=== PATIENT | female | born 1965 | race Caucasian/White ===

== ENCOUNTER 2023-11-08 17:15 | Emergency (ER) | payer MEDICAID, SELFPAY ==
[2023-11-08 17:23] VITALS: BP 153/83; BP 160/100; PULSE 80; PULSE 82; RESP 16; TEMP 36.4; O2SAT 98; O2SAT 99; BMI 46.1
--- NOTE | 2023-11-08 17:24 | ED_ITS ---
HPI - Psych General Chief Complaint: Behavioral Concerns Stated Complaint: From , refusing to take meds or eat for days Time Seen by Provider: 11/08/23 17:23 Source: patient and EMS Mode of arrival: EMS Limitations: no limitations History of Present Illness ED Provider: Dr. Nina Toledo HPI Narrative: Patient comes to the emergency room from [facility]. According to Susanne Gonsalez, the patient is refusing to take her meds and not eating and therefore they sent her to the emergency room. On arrival to the ED, patient states that she has told multiple times to the staff in [facility] that she can not stand the side effects of her medications, they make her feel very nauseous. Patient states that she is willing to take medications but not the ones that she is currently taking due to the side effects. Also, patient has told him that she does not like the foods that Susanne Gonsalez gives her. Therefore she is refusing to eat. Patient states that she is very hungry and would like to have something to eat Related Data Allergies Allergy/AdvReac Type Severity Reaction Status Date / Time cefuroxime [From Ceftin] Allergy Hives Verified 11/08/23 17:25 Review of Systems 2 Review of Systems: Constitutional : No Weight loss, No Fever, No Chills, No Night Sweats, No Fatigue, No Malaise ENT/Mouth : No Hearing loss, No Ear Pain, No Nasal Congestion, No Sinus Pain, No Hoarseness, No sore throat, No Rhinorrhea, No Swallowing Difficulty Eyes: No Eye Pain, No Swelling, No Redness, No Foreign Body, No Discharge, No Vision Changes Cardiovascular : No Chest Pain, No SOB, No Dyspnea on Exertion, No Orthopnea, No Edema, No Palpitations Respiratory : No Cough, No Sputum, No Wheezing, No Smoke Exposure, No Dyspnea Gastrointestinal : No Nausea, No Vomiting, No Diarrhea, No Constipation, No abdominal Pain, No Hematochezia, No Melena Genitourinary : no irregular bleeding, No Dysuria, No Urinary Frequency, No Hematuria, No Urinary Incontinence, No Urgency, No Flank Pain, No Urinary Flow Changes, No Hesitancy Musculoskeletal : No joint pain, No Myalgias, No Joint Swelling Skin : No Skin Lesions, No rash Neuro : No Weakness, No Numbness, No Paresthesias, No Loss of Consciousness, No Dizziness, No Headache Psych : Denies SI or HI Heme/Lymph: No Bruising, No Bleeding,No Lymphadenopathy Endocrine : No Polyuria, No Polydipsia, No Temperature Intolerance [facility] Past Medical History Medical History (Updated 11/08/23 @ 21:53 by Nina Toledo MD) Delusions Social History Social History Smoked in Last 30 Days: No Use of substances other than those prescribed or required for medical reasons: No Advance Directives: Yes Advance Directives Information Provided: No Advance Directives on File: No Physical Exam 2 Vital Signs: Vital Signs: Last Vital Signs Temp 98.2 F 11/08/23 19:45 Pulse 91 11/08/23 19:45 Resp 16 11/08/23 19:45 BP 135/70 11/08/23 21:27 Pulse Ox 96 11/08/23 19:45 O2 Del Method Room Air 11/08/23 19:45 BMI result Body Mass Index 46.1 Const: Other: Appearance: Alert. Oriented X3. No acute distress. Eyes: Pupils equal, round and reactive to light. ENT: Pharynx normal. Neck: Normal inspection. Neck supple. No lymph nodes noted. No crepitus CVS: Normal heart rate and rhythm. Pulses normal. Normal S1 and S2 Respiratory: No respiratory distress. Breath sounds normal. No Wheezing. No rales Abdomen: Soft and nontender. No rigidity. No distention. Skin: Skin warm and dry. Normal skin color. Normal skin turgor. Extremities: No lower extremity edema. No Lacerations. No Rash Neuro: Oriented X 3. No motor deficit. No sensory deficit. Moving all extremities. No slurred speech. CN 2 through 12 grossly intact Psych: calm, cooperative, normal affect Course Course Course Narrative: -patient coming from [facility], currently being treated for delusional thinking, responding to internal stimuli and suicide attempt -patient here for medication noncompliance and not eating . Although, here in the ED, patient is eating because she likes our food -we will obtain a care team consult, patient may need a psychiatric consult as well to change some of her medications -all of patient's labs pending -patient is on a one-to-one Medical Decision Making Medical Decision Making MDM Narrative: My interpretation of labs, normal hematology, no significant abnormality in chemistry -urinalysis pending -psych consult for medication changes pending -patient ate here in the ED. -care team evaluated the patient, no further intervention needed. -patient came in from psychiatric facility, per care team, they can change her medications Differential Diagnosis Differential Diagnoses: The differential diagnosis associated with the presentation includes (Anxiety, depression, medication noncompliance) Admission/Observation Consideration of admission/observation: Escalation of care including admission/observation considered (Patient is under physician observation waiting for her consult) Lab Data MDM Lab Attestation statement: I reviewed the patient's lab results. 11/08/23 17:38 11/08/23 17:38 Labs: Lab Results 11/08/23 11/08/23 Range/Units 17:38 19:44 WBC 9.5 (4.8-10.8) X10*3/uL RBC 4.46 (4.20-5.50) X10*6/uL Hgb 13.3 (12.0-16.0) g/dl Hct 37.7 (37.0-47.0) % MCV 84.5 (80.0-98.0) fL MCH 29.8 (27.0-33.0) pg MCHC 35.3 H (31.0-35.0) g/dl RDW 13.0 (11.0-16.0) % Plt Count 310 (160-400) X10*3/uL MPV 9.5 (9.4-12.3) fL Immature Gran % (Auto) 0.3 (0.0-0.4) % Neut % (Auto) 61.3 (45-73) % Lymph % (Auto) 27.9 (20-40) % [place] % (Auto) 8.0 (2-11) % Eos % (Auto) 1.9 (0-4) % Baso % (Auto) 0.6 (0-2) % Lymph # (Auto) 2.7 (1.2-4.9) X10*3/uL [place] # (Auto) 0.8 (0.1-1.2) X10*3/uL Eos # (Auto) 0.2 (0.0-0.4) X10*3/uL Baso # (Auto) 0.1 (0.0-0.2) X10*3/uL Abs Immat Gran (auto) 0.03 (0.00-0.03) X10*3/uL Absolute Neuts (auto) 5.8 (2.0-8.3) x10*3/uL Absolute Nucleated RBC 0.000 (0.0-0.012) X10*3/uL Nucleated RBC % (auto) 0.0 (0.0-0.2) /100WBC Sodium 138 (135-145) mmol/L Potassium 4.0 (3.3-5.1) mmol/L Chloride 105 (96-108) mmol/L Carbon Dioxide 20 L (22-29) mmol/L Anion Gap 17 (12-20) BUN 11 (9-16) mg/dL Creatinine 0.78 (0.5-1.4) mg/dL Estim Creat Clear Calc 90.5 Estimated GFR > 60 Random Glucose 89 (60-115) mg/dL Calcium 10.4 H (8.4-10.2) mg/dL Total Bilirubin 0.7 (0.0-1.0) mg/dL Direct Bilirubin 0.2 (0.0-0.5) mg/dL AST 22 (5-31) U/L ALT 35 H (0-31) U/L Alkaline Phosphatase 148 H (39-117) U/L Total Protein 8.2 H (6.5-8.0) g/dL Albumin 4.5 (3.5-5.0) g/dL Urine Color Yellow Urine Appearance Cloudy Urine pH 5.5 (5.0-9.0) Ur Specific [place] 1.010 (1.005-1.025) Urine Protein Negative (Neg-Trace) mg/dL Urine Glucose (UA) Negative (Negative) mg/dL Urine Ketones 15 (Negative) mg/dL Urine Blood Negative (Negative) Urine Nitrite Negative (Negative) Ur Leukocyte Esterase Trace H (Negative) Urine RBC 0-2 (0-2) /HPF Urine WBC 0-5 (0-5) /HPF Ur Squamous Epith Cells 11-20 (0-2) /HPF Urine Bacteria 1+ (None Seen) Hyaline Casts 3-5 (0-2) /LPF Urine Opiates Screen Not Detected (Not Detect) Ur Buprenorphine Scrn Not Detected (Not Detect) ng/mL Ur Oxycodone Screen Not Detected (Not Detect) ng/mL Urine Methadone Screen Not Detected (Not Detect) ng/mL Urine Fentanyl Screen Not Detected (Not Detect) Ur Barbiturates Screen Not Detected (Not Detect) Ur Phencyclidine Scrn Not Detected (Not Detect) Ur Amphetamines Screen Not Detected (Not Detect) U Benzodiazepines Scrn Not Detected (Not Detect) Urine Cocaine Screen Not Detected (Not Detect) U Marijuana (THC) Screen Not Detected (Not Detect) Critical Care Time Critical Care Time Critical Care Time: Yes Total Critical Care Time: 30 Attestation: I have personally provided critical care time. Time includes review of lab data, radiology results, discussion with consultants, and monitoring for potential decompensation. Intervention performed as documented. Discharge Plan Discharge Clinical Impression: Noncompliance with medications, Drug side effects Patient Disposition: Xfer Other Transfer Details: [facility] Instructions: Adverse Drug Reaction (ED) Additional Instructions: Patient ate here in the emergency room. Patient is not eating at [facility] because she does not like the food there. Patient is willing to take medications. However, she is experiencing side effects, severe nausea with the med she is currently taking. Psychiatry at [facility] can change her medications as needed. Print Language: Qatari
[2023-11-08 17:43] LABS: MANUAL DIFF FLAG NO
[2023-11-08 17:44] LABS: Basophils Absolute Auto 0.1 X10*3/uL (0.0-0.2); Basophils Percent Auto 0.6 % (0-2); Eosinophils Absolute Auto 0.2 X10*3/uL (0.0-0.4); Eosinophils Percent Auto 1.9 % (0-4); Hematocrit 37.7 % (37.0-47.0); Hemoglobin 13.3 g/dl (12.0-16.0); Imm Gran Abs Auto 0.03 X10*3/uL (0.00-0.03); Imm Gran Pct Auto 0.3 % (0.0-0.4); Lymphocytes Absolute Auto 2.7 X10*3/uL (1.2-4.9); Lymphocytes Percent Auto 27.9 % (20-40); Mean Corpuscular HGB Conc 35.3 g/dl (31.0-35.0); Mean Corpuscular Hemoglobin 29.8 pg (27.0-33.0); Mean Corpuscular Volume 84.5 fL (80.0-98.0); Mean Platelet Volume 9.5 fL (9.4-12.3); Monocytes Absolute Auto 0.8 X10*3/uL (0.1-1.2); Neutrophils Absolute Auto 5.8 x10*3/uL (2.0-8.3); Neutrophils Percent Auto 61.3 % (45-73); Platelet Count 310 X10*3/uL (160-400); Red Blood Count 4.46 X10*6/uL (4.20-5.50); White Blood Count 9.5 X10*3/uL (4.8-10.8)
[2023-11-08 17:57] LABS: Alanine Aminotransferase 35 U/L (0-31); Albumin Level 4.5 g/dL (3.5-5.0); Alkaline Phosphatase 148 U/L (39-117); Anion Gap 17 (12-20); Aspartate Amino Transferase 22 U/L (5-31); Bilirubin Direct 0.2 mg/dL (0.0-0.5); Bilirubin Total 0.7 mg/dL (0.0-1.0); Blood Urea Nitrogen 11 mg/dL (9-16); Calcium 10.4 mg/dL (8.4-10.2); Carbon Dioxide 20 mmol/L (22-29); Chloride 105 mmol/L (96-108); Creatinine Clr Calc Pharmacy 90.5; Estimated Glomerular Filt Rate > 60; Glucose Random 89 mg/dL (60-115); Sodium 138 mmol/L (135-145); Total Protein 8.2 g/dL (6.5-8.0)
[2023-11-08 19:45] VITALS: BP 167/82; PULSE 91; RESP 16; TEMP 36.8; O2SAT 96
--- NOTE | 2023-11-08 19:45 | MHC.EDTECH ---
Patient ate 2 sandwiches ,2 puddings and drank 600 ml georgette diana ,urine sample collected and sent to lab ,vitals taken .
[2023-11-08 19:50] LABS: Appearance Urine Cloudy; Color Urine Yellow; Glucose Urine UA Negative (Negative); Leukocyte Esterase Urine Trace (Negative); Nitrite Urine Negative (Negative); PH 5.5 (5.0-9.0); UMIC TRIGGER UACC YES; Urine Blood Negative (Negative); Urine Ketones 15 mg/dL (Negative); Urine Protein Negative (Neg-Trace)
[2023-11-08 19:55] LABS: Bacteria Urine 1+ (None Seen); RBC Urine 0-2 /HPF (0-2); WBC Urine 0-5 /HPF (0-5)
[2023-11-08 19:59] LABS: Amphetamine Screen Urine Not Detected (Not Detect); Barbiturates, Urine Not Detected (Not Detect); Benzodiazepines Screen Urine Not Detected (Not Detect); Buprenorphine Scr Not Detected (Not Detect); Cannabinoid Screen Urine Not Detected (Not Detect); Cocaine Screen Urine Not Detected (Not Detect); Fentanyl, urine Not Detected (Not Detect); Methadone Screen, Urine Not Detected (Not Detect); Opiate Screen Urine Not Detected (Not Detect); Oxycodone Screen Urine Not Detected (Not Detect); Phencyclidine Screen Urine Not Detected (Not Detect)
--- NOTE | 2023-11-08 20:59 | PC.NURSE ---
Addendum entered by Chiquis Meza 11/08/23 21:41: Per Jewels with CARE team pt should have medications adjusted per [facility] medical staff and all set to go back to facility. Original Note: Report to Dom at [facility]. Bridge Painter to book [facility] transport.
[2023-11-08 21:27] VITALS: BP 135/70
== END 2023-11-08 23:21 | disposition home or self-care (01) ==
PROVIDERS: Emergency Provider Emergency Medicine; PCP Internal Medicine
DX: R11.0 Nausea (principal); Z91.148 Patient's other noncompliance with medication regimen for other reason; Z79.899 Other long term (current) drug therapy
CPT/HCPCS: 36415; 80048; 80076; 80307; 81001; 85025; 99284; S9485

== ENCOUNTER 2023-11-25 14:41 | Emergency (ER) | payer MEDICAID, SELFPAY ==
--- NOTE | ~2023-11-25 | CT_ITS ---
EXAMINATION: CT HEAD WITHOUT CONTRAST CLINICAL INFORMATION: Change in mental status. COMPARISON: None available. TECHNIQUE: Contiguous axial imaging was performed from the skull base to vertex without intravenous administration of contrast. This CT examination was performed using dose optimization techniques as appropriate, variously including the following: *Automated exposure control *Adjustment of mA and/or kV according to patient size (this includes techniques or standardized protocols for targeted exams where dose is matched to indication/reason for exam; i.e. extremities or head) *Use of iterative reconstruction technique DLP: 651 mGy-cm FINDINGS: There is no evidence of acute intracranial hemorrhage or territorial infarction. No mass effect or midline shift is seen. Galvan to white matter differentiation is preserved. There is prominence of the bifrontal CSF spaces. No hydrocephalus. The osseous structures and soft tissues are intact. Patchy opacification of the anterior ethmoid air cells. Mucosal thickening of the left maxillary sinus. Mastoid air cells are clear. CT/CT head/brain wo IV con IMPRESSION: No acute intracranial abnormality. Prominence of the bifrontal CSF spaces. Mild chronic sinus disease.
[2023-11-25 14:43] VITALS: BP 160/80; BP 167/67; PULSE 60; PULSE 89; RESP 18; TEMP 37.3; O2SAT 100; O2SAT 98; BMI 37.7
[2023-11-25 14:58] LABS: Glucose, Whole Blood 80 mg/dL (60-115)
--- NOTE | 2023-11-25 15:27 | ECG_ITS ---
Test Reason : AMS Blood Pressure : / mmHG Vent. Rate : 062 BPM Atrial Rate : 062 BPM P-R Int : 160 ms QRS Dur : 072 ms QT Int : 404 ms P-R-T Axes : 011 017 002 degrees QTc Int : 410 ms Normal sinus rhythm Normal ECG No previous ECGs available Referred By: Nan Villela Electronically Signed By:SANDHYA VILLALBA
[2023-11-25] MEDS: LORazepam 2 MG/ML VIAL 1 MG IVPUSH (15:59)
[2023-11-25 16:02] VITALS: BP 160/76; PULSE 62; RESP 22; TEMP 36.4; O2SAT 98
[2023-11-25 16:02] LABS: MANUAL DIFF FLAG NO
--- NOTE | 2023-11-25 16:03 | PC.NURSE ---
pt refusing to respond to verbal stimulus by opening eyes or speaking, however patient will move limbs upon this nurse asking, pt eyes closed, iv inserted to lt ac, labs drawn, pt medicated per order, ekg performed, csm consultant sinus rk, vss, 1:1 sitter at bedside, will continue with plan of care
[2023-11-25 16:05] LABS: VBG Base Excess -0.9 mmol/L; VBG HCO3 20 mmol/L (22-26); VBG pCO2 24 mmHg; VBG pH 7.52 (7.32-7.43); VBG pO2 61 mmHg
--- NOTE | 2023-11-25 16:06 | ED_ITS ---
HPI - Altered Mental Status General Chief Complaint: Altered Mental Status Stated Complaint: FAILURE TO THRIVE FROM [place] Time Seen by Provider: 11/25/23 15:38 Source: EMS and old records reviewed Mode of arrival: EMS Limitations: altered mental status History of Present Illness ED Provider: HAROON HPI narrative: 58 yo female with PMH of HTN, mood disorder who was admitted to [facility] from [facility] for delusions 11/03 she reportedly has not been responding to staff and no PO intake. Patient provides no history and I have no idea how long this has been going on for. Patient holding eyes shut will not allow harms to fall on face, withdraws from painful stimuli. MD complaint: decreased responsiveness Onset (ago): unknown Timing confirmed by: caregiver Severity: moderate Consistency of symptoms: constant Context: history of similar presentation Associated symptoms: denies other symptoms Related Data Allergies Allergy/AdvReac Type Severity Reaction Status Date / Time cefuroxime [From Ceftin] Allergy Hives Verified 11/25/23 14:48 Review of Systems 2 Review of Systems: ROS unable to be obtained due to altered mental status PMFSH Past Medical History Attestation statement: The following information was validated with the patient. Source: old records reviewed Medical History Delusions Social History Social History (Updated 11/25/23 @ 16:17 by Nan Villela DO) Patient Tobacco Use Status: Tobacco use Unknown Physical Exam ED Vital Signs: Vital Signs - 24 hr 11/25/23 14:43 11/25/23 16:02 Temperature 99.1 F 97.6 F Pulse Rate 60 62 Respiratory Rate 18 22 H Blood Pressure 167/67 H 160/76 H Pulse Oximetry 100 98 Oxygen Delivery Method Room Air Room Air BMI result Body Mass Index 37.7 Appearance: somnolent withdraws to painful stimuli will now allow arm to fall on face, No acute distress. Eyes: Pupils equal, round and reactive to light. fights me to open her eyes ENT: Pharynx normal. Neck: Normal inspection. Neck supple. CVS: Normal heart rate and rhythm. Pulses normal. Respiratory: No respiratory distress. Breath sounds normal. Abdomen: Soft and nontender. Skin: Skin warm and dry. Normal skin color. Normal skin turgor. Extremities: No lower extremity edema. No calf ttp Neuro: nonverbal but fights eyes to open no clonus will not allow her arms or hands to fall on her face, localizes to pain Medications Administered Discontinued Medications Generic Name Dose Route Start Last Admin Trade Name Sheila PRN Reason Stop Dose Admin Lorazepam 1 mg 11/25/23 15:41 11/25/23 15:59 Lorazepam 2 Mg/Ml Vial IVPUSH 11/25/23 15:42 1 mg STAT STA Administration Medical Decision Making Medical Decision Making [facility] Narrative: 58 yo female with PMH of HTN, mood disorder who is now nonverbal not eating or drinking not speaking her neuro exam seems very intentional at this time - will obtain basic labs, EKG, CT head, UA - IV ativan in case of catatonia and rudy effect. work up pending, this could also be malingering/conversion disorder Differential Diagnosis Differential Diagnoses: The differential diagnosis associated with the presentation includes encephalopathy, catatonia, behavioral Admission/Observation Consideration of admission/observation: Escalation of care including admission/observation considered signed out to Osvaldo pending workup Lab Data [facility] Lab Attestation statement: I reviewed the patient's lab results. 11/25/23 15:56 11/25/23 15:56 Labs: Lab Results 11/25/23 11/25/23 11/25/23 Range/Units 14:48 15:56 15:57 WBC 7.6 (4.8-10.8) X10*3/uL RBC 4.48 (4.20-5.50) X10*6/uL Hgb 13.4 (12.0-16.0) g/dl Hct 37.0 (37.0-47.0) % MCV 82.6 (80.0-98.0) fL MCH 29.9 (27.0-33.0) pg MCHC 36.2 H (31.0-35.0) g/dl RDW 13.9 (11.0-16.0) % Plt Count 279 (160-400) X10*3/uL MPV 10.3 (9.4-12.3) fL Immature Gran % (Auto) 0.4 (0.0-0.4) % Neut % (Auto) 64.8 (45-73) % Lymph % (Auto) 25.7 (20-40) % [place] % (Auto) 6.9 (2-11) % Eos % (Auto) 1.7 (0-4) % Baso % (Auto) 0.5 (0-2) % Lymph # (Auto) 2.0 (1.2-4.9) X10*3/uL [place] # (Auto) 0.5 (0.1-1.2) X10*3/uL Eos # (Auto) 0.1 (0.0-0.4) X10*3/uL Baso # (Auto) 0.0 (0.0-0.2) X10*3/uL Abs Immat Gran (auto) 0.03 (0.00-0.03) X10*3/uL Absolute Neuts (auto) 5.0 (2.0-8.3) x10*3/uL Absolute Nucleated RBC 0.000 (0.0-0.012) X10*3/uL Nucleated RBC % (auto) 0.0 (0.0-0.2) /100WBC VBG pH 7.52 H (7.32-7.43) VBG pCO2 24 mmHg VBG pO2 61 mmHg VBG HCO3 20 L (22-26) mmol/L VBG O2 Saturation 92.0 % VBG Base Excess -0.9 mmol/L POC Glucose 80 (60-115) mg/dL Independent Interpretation I performed an independent interpretation of an: EKG Interpretation: Rate: 62 Rhythm: NSR [place]: normal Normal P waves. Normal TERESA. Normal QRS complex. ST T wave : normal no GRACIELA qTC: 410 prior studies: no acute ischemia The study has been interpreted contemporaneously by me. . Independent Historian Clinical information obtained from an independent historian. History obtained from or confirmed by: EMS External Record Review External record reviewed: Outpatient record Discharge Plan Discharge Clinical Impression: Weakness Patient Disposition: Still a Patient Print Language: Nepalese
[2023-11-25 16:09] LABS: Basophils Percent Auto 0.5 % (0-2); Eosinophils Absolute Auto 0.1 X10*3/uL (0.0-0.4); Eosinophils Percent Auto 1.7 % (0-4); Hemoglobin 13.4 g/dl (12.0-16.0); Imm Gran Abs Auto 0.03 X10*3/uL (0.00-0.03); Imm Gran Pct Auto 0.4 % (0.0-0.4); Lymphocytes Percent Auto 25.7 % (20-40); Mean Corpuscular HGB Conc 36.2 g/dl (31.0-35.0); Mean Corpuscular Hemoglobin 29.9 pg (27.0-33.0); Mean Corpuscular Volume 82.6 fL (80.0-98.0); Mean Platelet Volume 10.3 fL (9.4-12.3); Monocytes Absolute Auto 0.5 X10*3/uL (0.1-1.2); Monocytes Percent Auto 6.9 % (2-11); Neutrophils Percent Auto 64.8 % (45-73); Platelet Count 279 X10*3/uL (160-400); Red Blood Count 4.48 X10*6/uL (4.20-5.50); Red Cell Distribution Width 13.9 % (11.0-16.0); White Blood Count 7.6 X10*3/uL (4.8-10.8)
[2023-11-25 16:11] LABS: Venous Blood Gas Refer to POC result
[2023-11-25 16:12] LABS: Ammonia 18 umol/L (13-55)
[2023-11-25] MEDS: 0.9 % Sodium Chloride 500 ML IV (16:13)
--- NOTE | 2023-11-25 16:15 | PC.NURSE ---
ivf started per order
[2023-11-25 16:27] LABS: Alanine Aminotransferase 22 U/L (0-31); Albumin Level 3.9 g/dL (3.5-5.0); Alkaline Phosphatase 124 U/L (39-117); Anion Gap 14 (12-20); Aspartate Amino Transferase 17 U/L (5-31); Bilirubin Direct 0.2 mg/dL (0.0-0.5); Bilirubin Total 0.5 mg/dL (0.0-1.0); Blood Urea Nitrogen 8 mg/dL (9-16); Calcium 10.1 mg/dL (8.4-10.2); Carbon Dioxide 19 mmol/L (22-29); Chloride 107 mmol/L (96-108); Creatinine Clr Calc Pharmacy 116.5; Estimated Glomerular Filt Rate > 60; Glucose Random 84 mg/dL (60-115); Potassium 3.8 mmol/L (3.3-5.1); Sodium 136 mmol/L (135-145); Total Protein 7.1 g/dL (6.5-8.0)
[2023-11-25 16:40] LABS: TSH reflex Free T4 1.69 uIU/mL (0.32-4.0)
--- NOTE | 2023-11-25 17:23 | PC.NURSE ---
pt now awake and answering questions, pt denying pain at this time, she is alert to person only, pt stated the year was however she knew aroldo was president, unsure of date/day or where she currently was located.
[2023-11-25 18:24] LABS: Appearance Urine Clear; Color Urine Yellow; Glucose Urine UA Negative (Negative); Leukocyte Esterase Urine Negative (Negative); Nitrite Urine Negative (Negative); Specific Gravity - Urine 1.015 (1.005-1.025); Urine Blood Negative (Negative); Urine Ketones 15 mg/dL (Negative); Urine Protein Negative (Neg-Trace)
[2023-11-25 18:38] VITALS: BP 150/71; PULSE 77; RESP 16; TEMP 36.7; O2SAT 97
--- NOTE | 2023-11-25 19:56 | PC.NURSE ---
pt is axox4 speaking full clear sentences. ambulated with steady gait to bathroom. tolerating po intake. pt verbalized i'd like to go home now. MD made aware and will assess for d/c plan.
--- NOTE | 2023-11-25 19:57 | PC.NURSE ---
spoke to Tank [phone] at [facility] as they called for an update. verbalized in agreement if d/c planning based on pt condition; back to baseline at this time.
[2023-11-25 21:22] VITALS: BP 151/80; PULSE 74; RESP 18; TEMP 36.7; O2SAT 95
[2023-11-25 22:01] VITALS: BP 151/80; PULSE 74; RESP 18; TEMP 36.7; O2SAT 95
== END 2023-11-25 22:05 ==
PROVIDERS: Emergency Medicine; Emergency Provider Internal Medicine
DX: R41.82 Altered mental status, unspecified (principal); R53.1 Weakness; I10 Essential (primary) hypertension; R11.0 Nausea; Z79.899 Other long term (current) drug therapy
CPT/HCPCS: 36415; 70450; 80048; 80076; 81003; 82140; 82803; 82947; 83735; 84443; 85025; 93005; 96361; 96374; 99285; J2060